=== PATIENT | male | born 1955 | race Caucasian/White ===

== ENCOUNTER 2016-09-09 18:19 | Emergency (ER) | payer OTHER ==
--- NOTE | 2016-09-09 19:36 | EDM.PDOC ---
ED HPI Trauma - General Chief Complaint: Upper Extremity Injury/Pain Stated Complaint: R SHOULDER PAIN Time Seen by Provider: 09/09/16 19:30 Source: Reports: Patient History Limitations: Reports: No limitations - History of Present Illness INITIAL COMMENTS - FREE TEXT/NARRATIVE: HISTORY AND PHYSICAL: History of present illness: Patient is a [id number] male who presents to the emergency department complaining of right shoulder pain. He states he was climbing down a ladder some stairs and lost his footing and grabbed onto something and pulled his shoulder. He is having pain in the area especially with abduction of the shoulder. He denies any numbness or tingling. No difficulties with range of motion of the elbow or wrist. No neck injury. There was no fall associated with it he denies head injury or back pain. Review of systems: As per history of present illness and below otherwise all systems reviewed and negative. Past medical history: As per history of present illness and as reviewed below otherwise noncontributory. Surgical history: As per history of present illness and as reviewed below otherwise noncontributory. Social history: No reported history of drug or alcohol abuse. Family history: As per history of present illness and as reviewed below otherwise noncontributory. Physical exam: HEENT: Atraumatic, normocephalic. Lungs: No respiratory distress, clear to auscultation Heart: Regular rate and rhythm. Abdomen: Soft, nondistended, nontender. Pelvis: Stable nontender. Genitourinary: Deferred. Rectal: Deferred. Extremities: Atraumatic, swelling or deformity. Patient is able to move the shoulder and he can abduct it but experiences mild pain. No dislocation. Clavicle is nontender with no deformity. Normal distal pulses and sensation. Neuro: Awake, alert, oriented. Therapeutics: Sling, diclofenac Impression: Right shoulder injury Plan: Patient seemed to be mostly concerned with the soft tissue injury. He states he knew he didn't break or dislocate it and seems like he wanted to have an MRI so we can know for sure what was going on so he can determine if he should go home or continue working. I explained or limitations of MRI and that we did treat it conservatively and evaluate how symptoms were in several days. They were worsening or not improving she would maybe need to followup with primary care orthopedics for additional imaging. He states he was planning on leaving town fairly soon so I recommended followup as needed where he ends up. I do not feel there is any concern for fracture dislocation and so it is a soft tissue strain that may require additional followup but will treat conservatively at this time. He was given a sling and diclofenac and some activity restriction instructions. Definitive disposition and diagnosis as appropriate pending reevaluation and review of above. Allergies/ADRs: Allergies No Known Allergies Allergy (Verified 09/09/16 18:47) Home Medications: Ambulatory Orders . [No Known Home Meds] 09/09/16 [Confirmed 09/09/16] Past Medical History - Past Health History Medical/Surgical History: Denies Medical/Surgical History Social & Family History - Tobacco Use Smoking Status *Q: Current Every Day Smoker Years of Tobacco use: 20 Packs/Tins Daily: 0.5 - Recreational Drug Use Recreational Drug Use: No Review of Systems - Review of Systems Review Of Systems: ROS reveals no pertinent complaints other than HPI. Trauma Exam - Physical Exam Exam: See Below (See history of present illness) Course - Vital Signs Last Recorded V/S: Last Vital Signs Temp Pulse 92 09/09/16 19:45 Resp 16 09/09/16 19:45 BP 150/72 H 09/09/16 19:45 Pulse Ox 99 09/09/16 19:45 - Orders/Labs/Meds Orders: Active Orders 24 hr Category Date Time Status DME for Discharge [COMM] Stat Oth 09/09/16 19:36 Ordered Departure - Departure Time of Disposition: 19:36 Disposition: Home, Self-Care 01 Condition: good Clinical Impression: Right shoulder injury Qualifiers: Encounter type: initial encounter Qualified Code(s): S49.91XA - Unspecified injury of right shoulder and upper arm, initial encounter Instructions: Shoulder Pain Referrals: PCP,None [Primary Care Provider] - Forms: ED Department Discharge Additional Instructions: The following information is given to patients seen in the emergency department who are being discharged to home. This information is to outline your options for follow-up care. We provide all patients seen in our emergency department with a follow-up referral. The need for follow-up, as well as the timing and circumstances, are variable depending upon the specifics of your emergency department visit. If you don't have a primary care physician on staff, we will provide you with a referral. We always advise you to contact your personal physician following an emergency department visit to inform them of the circumstance of the visit and for follow-up with them and/or the need for any referrals to a consulting specialist. The emergency department will also refer you to a specialist when appropriate. This referral assures that you have the opportunity for follow-up care with a specialist. All of these measure are taken in an effort to provide you with optimal care, which includes your follow-up. Under all circumstances we always encourage you to contact your private physician who remains a resource for coordinating your care. When calling for follow-up care, please make the office aware that this follow-up is from your recent emergency room visit. If for any reason you are refused follow-up, please contact the [facility] at and asked to speak to the emergency department charge nurse. [facility] [address], [address] [place] [address] - My Orders Last 24 Hours: My Active Orders 09/09/16 19:36 DME for Discharge [COMM] Stat - Assessment/Plan Last 24 Hours: My Active Orders 09/09/16 19:36 DME for Discharge [COMM] Stat
[2016-09-09 19:57] VITALS: BP 150/72
== END 2016-09-09 19:50 | disposition home or self-care (01) ==
LOC: MW.ED 18:19
DX: S49.91XA Unspecified injury of right shoulder and upper arm, initial encounter (principal); F17.210 Nicotine dependence, cigarettes, uncomplicated; W11.XXXA Fall on and from ladder, initial encounter
CPT/HCPCS: 99283; A4566